=== PATIENT | female | born 1965 | race Two or more races ===

== ENCOUNTER 2017-03-22 12:02 | Emergency (ER) | payer OTHER ==
[~2017-03-22] VITALS: Ht 160 cm; Wt 90.7 kg
[2017-03-22 12:05] VITALS: BP 101/65
[2017-03-22 12:55] LABS: BASOPHILS % (AUTO) 0.8 % (0.0-2.0); EOSINOPHILS % (AUTO) 3.5 % (0.0-3.0); LYMPHOCYTES % (AUTO) 10.9 % (20.0-45.0); MEAN CORPUSCULAR HGB CONC 31.8 G/DL (32.0-36.0); MEAN CORPUSCULAR VOLUME 104 FL (80-99); MEAN PLATELET VOLUME 7.3 FL (6.5-10.1); MONOCYTES % (AUTO) 6.7 % (1.0-10.0); NEUTROPHILS % (AUTO) 78.2 % (45.0-75.0); PLATELET COUNT 216 K/UL (150-450); RED BLOOD COUNT 4.04 M/UL (4.20-5.40); RED CELL DISTRIBUTION WIDTH 13.3 % (11.6-14.8); WHITE BLOOD COUNT 12.8 K/UL (4.8-10.8)
[2017-03-22 12:58] LABS: ALBUMIN/GLOBULIN RATIO 1.3 (1.0-2.7); CALCIUM 9.5 mg/dL (8.6-10.2); CREATININE 1.1 mg/dL (0.5-0.9); GLOMERULAR FILTRATION RATE 51.9 mL/min (>60); TOTAL PROTEIN 7.4 g/dL (6.6-8.7); TROPONIN I < 0.30 ng/mL (<=0.30)
[2017-03-22 13:08] LABS: CKMB 1.9 ng/mL (< 3.8)
[2017-03-22] MEDS ORDERED: Lidocaine 2% Visc 15ml soln ORAL ONE (13:45)
[2017-03-22] MEDS ORDERED: Famotidine 20 MG/ 2ML VIAL IVP ONE (13:45)
--- NOTE | 2017-03-22 13:53 | Emergency Room Report ---
History of Present Illness General Chief Complaint: Chest Pain Source: Patient, EMS Present Illness HPI This patient states that she has a recent history of a myocardial infarction. She states this was 2 weeks ago. She apparently had a cardiac arrest. She ended up getting a defibrillator placed. She states that about a week ago after being [facility], her defibrillator fired. She was seen at [facility] and admitted there for a couple days. She presents here today to [facility] because she has been having chest pain all morning. She states that the pain is worse when she lays flat. She states when she lays flat she also feels short of breath. She does have a history of congestive heart failure. She denies cough or congestion. She denies fever or chills. She did have an episode of nausea and vomiting this morning. She denies abdominal pain. She has no other complaints. Allergies: Coded Allergies: No Known Allergies (Unverified , 03/22/17) Patient History Past Medical History: see triage record, HTN, NH, CAD, CHF, arrhyth, asthma, COPD Past Surgical History: other - Defibrillator Social History: Denies: alcohol use, drug use, smoking - Quit 2 weeks ago. Reviewed Nursing Documentation: PMH: Agreed, PSxH: Agreed Nursing Documentation-PMH Hx Cardiac Problems: Yes - CHF Hx Hypertension: Yes Hx Asthma: Yes Hx COPD: Yes Physical Exam Vital Signs Date Time Temp Pulse Resp B/P Pulse Ox O2 Delivery O2 Flow Rate FiO2 03/22/17 12:05 50 20 101/64 98 Room Air 03/22/17 12:05 97.9 Sp02 EP Interpretation: reviewed, normal General Appearance: no apparent distress, alert, GCS 15, non-toxic Head: normocephalic, atraumatic Eyes: bilateral eye PERRL, bilateral eye normal inspection ENT: hearing grossly normal, normal pharynx, no angioedema, normal voice Neck: full range of motion, supple/symm/no masses Respiratory: chest non-tender, lungs clear, normal breath sounds, no respiratory distress, no retraction, no accessory muscle use, speaking full sentences, other - L. upper chest with dressing over defibrillator surgical site. No swelling. Healing. Cardiovascular #1: regular rate, rhythm, no edema Gastrointestinal: normal bowel sounds, non tender, soft, non-distended, no guarding, no rebound Rectal: deferred Musculoskeletal: back normal, gait/station normal, normal range of motion, non- tender Neurologic: alert, oriented x3, responsive, motor strength/tone normal, sensory intact, speech normal Psychiatric: judgement/insight normal, memory normal, mood/affect normal, no suicidal/homicidal ideation Skin: normal color, no rash, warm/dry, well hydrated Medical Decision Making Diagnostic Impression: Primary Impression: Chest pain Additional Impressions: UTI (urinary tract infection) Trichomonas infection ER Course This patient presents with chest pain. She has a recent defibrillator placement and NH 2 weeks ago. She is high risk for acute coronary syndrome. She is also given treatment for GERD and gastritis. She has a history of congestive heart failure but has no evidence of pulmonary edema on chest x-ray. Troponin is negative which is reassuring. She's also found to have a urinary tract infection and there was some Trichomonas in her urinalysis. She was treated with Rocephin, Flagyl and azithromycin for presumptive other STDs. Patient's insurance company is capitated to another hospital. Anticipate transfer. Patient is stable for transfer. Labs Test 03/22/17 12:30 03/22/17 13:55 White Blood Count 12.8 K/UL (4.8-10.8) Red Blood Count 4.04 M/UL (4.20-5.40) Hemoglobin 13.3 G/DL (12.0-16.0) Hematocrit 41.8 % (37.0-47.0) Mean Corpuscular Volume 104 FL (80-99) Mean Corpuscular Hemoglobin 33.0 PG (27.0-31.0) Mean Corpuscular Hemoglobin Concent 31.8 G/DL (32.0-36.0) Red Cell Distribution Width 13.3 % (11.6-14.8) Platelet Count 216 K/UL (150-450) Mean Platelet Volume 7.3 FL (6.5-10.1) Neutrophils (%) (Auto) 78.2 % (45.0-75.0) Lymphocytes (%) (Auto) 10.9 % (20.0-45.0) Monocytes (%) (Auto) 6.7 % (1.0-10.0) Eosinophils (%) (Auto) 3.5 % (0.0-3.0) Basophils (%) (Auto) 0.8 % (0.0-2.0) Sodium Level 138 mEQ/L (135-145) Potassium Level 4.0 mEQ/L (3.4-4.9) Chloride Level 101 mEQ/L (98-107) Carbon Dioxide Level 24 mEQ/L (20-30) Anion Gap 13 (5-15) Blood Urea Nitrogen 18 mg/dL (7-23) Creatinine 1.1 mg/dL (0.5-0.9) Estimat Glomerular Filtration Rate 51.9 mL/min (>60) Glucose Level 101 mg/dL (74-106) Calcium Level 9.5 mg/dL (8.6-10.2) Total Bilirubin 0.6 mg/dL (0.0-1.2) Aspartate Amino Transf (AST/SGOT) 28 U/L (5-40) Alanine Aminotransferase (ALT/SGPT) 23 U/L (3-33) Alkaline Phosphatase 104 U/L (35-104) Total Creatine Kinase 77 U/L (26-140) Creatine Kinase MB 1.9 ng/mL (< 3.8) Creatine Kinase MB Relative Index 2.4 Troponin I < 0.30 ng/mL (<=0.30) Total Protein 7.4 g/dL (6.6-8.7) Albumin 4.2 g/dL (3.5-5.2) Globulin 3.2 g/dL Albumin/Globulin Ratio 1.3 (1.0-2.7) Urine Color [place] Urine Appearance Slightly cloudy Urine pH 5 (4.5-8.0) Urine Specific [place] 1.020 (1.005-1.035) Urine Protein Negative (NEGATIVE) Urine Glucose (UA) Negative (NEGATIVE) Urine Ketones Negative (NEGATIVE) Urine Occult Blood 3+ (NEGATIVE) Urine Nitrite Negative (NEGATIVE) Urine Bilirubin Negative (NEGATIVE) Urine Ictotest Negative Urine Urobilinogen Normal MG/DL (0.0-1.0) Urine Leukocyte Esterase 3+ (NEGATIVE) Urine RBC 5-10 /HPF (0 - 2) Urine WBC 15-20 /HPF (0 - 2) Urine Squamous Epithelial Cells Moderate /LPF (NONE/OCC) Urine Bacteria Moderate /HPF (NONE) Urine Hyaline Casts 5-10 /LPF (NONE) Urine Mucus Few /LPF (NONE/OCC) Urine Trichomonas Few /HPF (NONE) Urine Opiates Screen Negative (NEGATIVE) Urine Barbiturates Screen Negative (NEGATIVE) Phencyclidine (PCP) Screen Negative (NEGATIVE) Urine Amphetamines Screen Negative (NEGATIVE) Urine Benzodiazepines Screen Negative (NEGATIVE) Urine Cocaine Screen Negative (NEGATIVE) Urine Marijuana (THC) Screen Negative (NEGATIVE) Labs Test 03/22/17 12:30 White Blood Count 12.8 K/UL (4.8-10.8) Red Blood Count 4.04 M/UL (4.20-5.40) Hemoglobin 13.3 G/DL (12.0-16.0) Hematocrit 41.8 % (37.0-47.0) Mean Corpuscular Volume 104 FL (80-99) Mean Corpuscular Hemoglobin 33.0 PG (27.0-31.0) Mean Corpuscular Hemoglobin Concent 31.8 G/DL (32.0-36.0) Red Cell Distribution Width 13.3 % (11.6-14.8) Platelet Count 216 K/UL (150-450) Mean Platelet Volume 7.3 FL (6.5-10.1) Neutrophils (%) (Auto) 78.2 % (45.0-75.0) Lymphocytes (%) (Auto) 10.9 % (20.0-45.0) Monocytes (%) (Auto) 6.7 % (1.0-10.0) Eosinophils (%) (Auto) 3.5 % (0.0-3.0) Basophils (%) (Auto) 0.8 % (0.0-2.0) Sodium Level 138 mEQ/L (135-145) Potassium Level 4.0 mEQ/L (3.4-4.9) Chloride Level 101 mEQ/L (98-107) Carbon Dioxide Level 24 mEQ/L (20-30) Anion Gap 13 (5-15) Blood Urea Nitrogen 18 mg/dL (7-23) Creatinine 1.1 mg/dL (0.5-0.9) Estimat Glomerular Filtration Rate 51.9 mL/min (>60) Glucose Level 101 mg/dL (74-106) Calcium Level 9.5 mg/dL (8.6-10.2) Total Bilirubin 0.6 mg/dL (0.0-1.2) Aspartate Amino Transf (AST/SGOT) 28 U/L (5-40) Alanine Aminotransferase (ALT/SGPT) 23 U/L (3-33) Alkaline Phosphatase 104 U/L (35-104) Total Creatine Kinase 77 U/L (26-140) Creatine Kinase MB 1.9 ng/mL (< 3.8) Creatine Kinase MB Relative Index 2.4 Troponin I < 0.30 ng/mL (<=0.30) Total Protein 7.4 g/dL (6.6-8.7) Albumin 4.2 g/dL (3.5-5.2) Globulin 3.2 g/dL Albumin/Globulin Ratio 1.3 (1.0-2.7) EKG Diagnostic Results Rate: normal Rhythm: other - SR w/ occasional PVC's RBBB. Q waves in V1, V2. Rhythm Strip Diag. Results EP Interpretation: yes Rate: 80's Rhythm: NSR, no PVC's, no ectopy Chest X-Ray Diagnostic Results Chest X-Ray Diagnostic Results : Chest X-Ray Ordered: Yes # of Views/Limited/Complete: 1 View Indication: Chest Pain EP Interpretation: Yes Interpretation: no consolidation, no effusion, no pneumothorax, no acute cardiopulmonary disease Impression: No acute disease Interpreting ER Provider: mild cardiomegaly Last Vital Signs Date Time Temp Pulse Resp B/P Pulse Ox O2 Delivery O2 Flow Rate FiO2 03/22/17 12:15 85 19 Room Air 03/22/17 12:05 97.9 101/65 98 Disposition: XFER SHT-TRM HOSP Condition: Stable Referrals: NOT CHOSEN DANIAL/,REFERRING (PCP) PRICILLA CRAFT D.O. Mar 22, 2017 13:53
[2017-03-22 14:00] VITALS: BP 98/57
[2017-03-22 14:14] LABS: APPEARANCE,URINE SLIGHTLY CLOUDY; KETONES,URINE NEGATIVE (NEGATIVE); LEUKOCYTE ESTERASE ,URINE 3+ (NEGATIVE); NITRITE,URINE NEGATIVE (NEGATIVE); PH,URINE 5 (4.5-8.0); PROTEIN,URINE NEGATIVE (NEGATIVE); UROBILINOGEN,URINE NORMAL MG/DL (0.0-1.0)
[2017-03-22 14:29] LABS: BACTERIA,URINE MODERATE /HPF; SQUAMOUS EPITHELIAL CELL,UR MODERATE /LPF (NONE/OCC); WBC,URINE 15-20 /HPF (0 - 2)
[2017-03-22 14:30] LABS: MUCUS,URINE FEW /LPF (NONE/OCC)
[2017-03-22 14:31] LABS: ICTOTEST NEGATIVE; TRICHOMONAS,URINE FEW /HPF
--- NOTE | 2017-03-22 15:06 | Diagnostic Imaging Report ---
Indication: Chest pain Technique: One view of the chest Comparison: None Findings: The heart is enlarged. There is minimal left lateral lower lung atelectasis or scarring. Lungs and pleural spaces are otherwise clear. There is a left chest biventricular AICD. Impression: No acute process Cardiomegaly Other findings as noted
[2017-03-22] MEDS ORDERED: CARVEDILOL3.125 MG ORAL (15:13)
[2017-03-22] MEDS ORDERED: [UNRECOGNIZED DRUG - REMARK] (15:13)
[2017-03-22] MEDS ORDERED: LASIX40 MG ORAL (15:13)
[2017-03-22] MEDS ORDERED: ASPIR 8181 MG ORAL (15:13)
[2017-03-22] MEDS ORDERED: LISINOPRIL5 MG ORAL (15:13)
[2017-03-22] MEDS ORDERED: cefTRIAXone 1 GM in NS 55 ML IVPB ONE (15:45)
[2017-03-22] MEDS ORDERED: Azithromycin 250mg tab ORAL ONE (15:45)
[2017-03-22] MEDS ORDERED: metroNIDAZOLE 500mg tab ORAL ONE (15:45)
[2017-03-22 16:00] VITALS: BP 107/59
== END 2017-03-22 16:00 | disposition left against medical advice (07) ==
LOC: EDBD 12:02 → EMR 12:25
DX: R07.9 Chest pain, unspecified (principal); N39.0 Urinary tract infection, site not specified; A59.9 Trichomoniasis, unspecified; I22.2 Subsequent non-ST elevation (NSTEMI) myocardial infarction; I11.0 Hypertensive heart disease with heart failure; I50.9 Heart failure, unspecified; J44.9 Chronic obstructive pulmonary disease, unspecified; I25.10 Atherosclerotic heart disease of native coronary artery without angina pectoris; Z87.891 Personal history of nicotine dependence; I45.10 Unspecified right bundle-branch block; I51.7 Cardiomegaly; Z95.810 Presence of automatic (implantable) cardiac defibrillator
CPT/HCPCS: 36415; 71010; 80053; 80300; 81003; 82550; 82553; 84484; 85025; 87081; 87086; 93005; 96374; 99284; S0028